=== PATIENT | male | born 1990 | race Two or more races ===

== ENCOUNTER 2019-12-13 15:43 | Emergency (ER) | payer BC ==
[~2019-12-13] VITALS: Ht 175.3 cm; Wt 73.0 kg
[2019-12-13] MEDS ORDERED: ONDANSETRON 4MG ODT PO ONE (17:15)
[2019-12-13] MEDS ORDERED: MECLIZINE 25MG TABLET PO ONE (17:15)
[2019-12-13 18:39] VITALS: BP 163/97
== END 2019-12-13 18:16 | disposition home or self-care (01) ==
LOC: ER 15:43
DX: R42 Dizziness and giddiness (principal)
CPT/HCPCS: 99283; J8597; Q0162

== ENCOUNTER → 2021-02-20 | Outpatient (CLI) | payer BC ==
[2021-02-20 17:21] LABS: BASOPHILS % 0.4 % (0.0-2.0); CLARITY URINE CLEAR (CLEAR); COLOR URINE YELLOW (YELLOW); EOSINOPHILS % 0.9 % (0.0-5.0); HEMATOCRIT. 47.8 % (42.0-52.0); HEMOGLOBIN. 16.3 g/dL (14.0-18.0); KETONES URINE 1+ (NEGATIVE); LEUKOCYTE ESTERASE URINE NEGATIVE (NEGATIVE); MEAN CORPUSCULAR VOLUME 88.1 fL (80.0-94.0); MEAN PLATELET VOLUME 7.8 fl (7.4-10.4); MONOCYTES % 5.7 % (2.0-8.0); NITRITE URINE NEGATIVE (NEGATIVE); OCCULT BLOOD URINE NEGATIVE (NEGATIVE); PLATELET 288 x1000/uL (130-400); PROTEIN URINE NEGATIVE (NEGATIVE); RED BLOOD CELL COUNT 5.43 mill/uL (4.7-6.1); RED CELL DISTRIBUTION WIDTH 13.3 % (11.6-14.6); SPECIFIC GRAVITY URINE 1.021 (1.005-1.030); UROBILINOGEN URINE 0.2 E.U./dL (0.2-1.0)
[2021-02-20 17:37] LABS: CHLORIDE 104 mEq/L (98-107)
[2021-02-20 17:48] LABS: T4 FREE 1.17 ng/dL (0.76-1.46)
[2021-02-20 17:56] LABS: FOLIC ACID (FOLATE) SERUM 7.4 ng/mL (>5.38)
[2021-02-20 18:39] LABS: PROSTRATE SPECIFIC AG TOTAL 1.11 ng/mL (0.0-4.0)
[2021-02-22 09:06] LABS: THYROID PEROXIDASE ANTIBODY < 9 IU/mL (0-34)
[2021-02-24 09:10] LABS: VITAMIN D 1-25 DIHYDROXY 40.2 pg/mL (19.9-79.3)
== END | disposition home or self-care (01) ==
LOC: LAB 16:39
PROVIDERS: ATTEND Family Medicine
DX: R53.83 Other fatigue (principal); F52.21 Male erectile disorder; Z12.5 Encounter for screening for malignant neoplasm of prostate; Z13.29 Encounter for screening for other suspected endocrine disorder
CPT/HCPCS: 36415; 80053; 81003; 82607; 82652; 82746; 83036; 84153; 84439; 84443; 84481; 85025; 86376; G0103